=== PATIENT | female | born 1970 | race Caucasian/White ===

== ENCOUNTER → 2016-03-10 | Outpatient (CLI) | payer OTHER ==
[~2016-03-10] VITALS: Ht 180.3 cm; Wt 102.5 kg
[~2016-03-10] MED LIST: ADDERALL 20 MG20 MG PO; ADDERALL 30 MG30 MG PO; ADVAIR 250-501 EACH IH; ALLEGRA60 MG PO; CLONAZEPAM OR; DARVOCET-N 1001 EACH PO; FISH OIL 1,001000 M2 PO; GABAPENTIN 100100 MG PO; LAMICTAL XR200 MG PO; LIDODERM 5%1 PATC1 TRANSDERM; LOVASTAT20 OR; LUNESTA3 MG PO; NABUMETONE 750750 M1 PO; NEURONTIN 300300 M1 PO; PERCOCET 10-321 EACH OR; PROAIR HFA8.5 GM IH; PROTONIX40 M2 PO; SEROQUEL XR 30300 M1 PO; SINGULAIR 10 MG10 M1 PO; TRILEPTAL OR; ZOLOFT100 MG PO; ZOLPIDEM TARTRA10 MG PO
--- NOTE | ~2016-03-10 | HPC ---
[facility] [place] [address] PAIN MANAGEMENT CONSULTATION Name: AVIS STALLINGS Room #: REG [facility] Pérez#: [id number] Admission: 03/10/16 Attend Phys: Ron Linton DO Discharge: Date of : 70 Report #: [id number] THIS REPORT FOR: //name// CC: Ron Acosta The patient is a 45-year-old female seen in consultation at the request of Dr. Acosta, 10/01/2015, diagnosed with symptomatic cervical radiculopathy. We tried nonsteroidal anti-inflammatory medication (nabumetone) 750 b.i.d. and talked about cervical epidural injection. The patient returns to pain clinic today somewhat distressed about ongoing pain despite conservative therapies. She notes that the right neck, shoulder, arm remains problematic. She has had some chronic right hip issues due to subluxation. She does note, however, primary pain is in the right shoulder, neck and arm. PHYSICAL EXAMINATION: Shows a 45-year-old female, BMI is 31.5 kilograms per meter squared. Blood pressure is modestly elevated 152/90, pulse 105, respirations 16. Positive Lhermitte's sign with decreased right triceps strength compared to the left. A little decreased biceps strength as well on the right, objectively perhaps 3-4/5. All other muscles are 4/5. Biceps reflex is absent on the right, all others are 1/4. Grasp is symmetric. ASSESSMENT: Symptomatic cervical radiculopathy. RECOMMENDATION: Discussion with the patient today about therapeutic option. We have elected to proceed with epidural injection under fluoroscopy today, continue ibuprofen OTC which she found more efficacious than the nabumetone. Follow up in 3 weeks for reevaluation. PROCEDURE: Cervical epidural steroid injection under fluoroscopy. PROCEDURE NOTE: After written and informed consent was obtained including risk of dural puncture, spinal cord trauma, paralysis and increased pain, the patient was taken to the fluoroscopy suite and placed in the prone position, with appropriate abdominal bolstering, neck was flexed, palms under the thighs. Skin was prepped with ChloraPrep. Sterile draping was applied. Skin wheal with 1% Xylocaine was raised. A 22-gauge 3-1/2 inch epidural Tuohy needle was placed via a midline approach at the C7-T1 interspace, advanced under biplanar fluoroscopy using continuous loss of resistance. With appropriate loss of resistance at the expected depth on lateral view, the glass loss of resistance syringe was disconnected. A low volume extension tubing was connected to the needle and a 5 mL syringe. Negative aspiration for cerebrospinal fluid or blood was noted. A 1 mL of Omnipaque was injected which showed spread within the epidural space on biplanar fluoroscopy. This was followed with 80 mg of triamcinolone plus 1 mL of 1.5% preservative Xylocaine. Needle was withdrawn to the interspinous ligament, 0.5 mL of Xylocaine was used to flush the needle. [address] [address] PAIN MANAGEMENT CONSULTATION Name: HAYLIEAVISGREG ENGLAND Room #: REG CLBrice Ortez#: [id number] Admission: 03/10/16 Attend Phys: Ron Linton, Discharge: Date of : 70 Report #: [id number] The needle was then completely withdrawn. The area was cleansed. Band-Aid was applied. The patient was allowed to move off the procedure table and ambulated to the recovery room, monitored for an appropriate period of time, discharged in good and stable condition. <ELECTRONICALLY SIGNED> By: Ron Linton DO 03/13/16 1228 1613 0317 Ron Linton DO /nt
[2016-03-10 10:27] VITALS: BP 152/90
== END | disposition home or self-care (01) ==
LOC: PAIN 06:59
DX: M54.12 Radiculopathy, cervical region (principal)

== ENCOUNTER → 2016-05-05 | Outpatient (CLI) | payer OTHER ==
[~2016-05-05] VITALS: Ht 180.3 cm; Wt 100.3 kg
--- NOTE | ~2016-05-05 | HPC ---
[facility] [address] [place] [address] PAIN MANAGEMENT CONSULTATION Name: AVIS STALLINGSN Room #: REG Brice ButtAnastasia#: [id number] Admission: 05/05/16 Attend Phys: Ron Linton DO Discharge: Date of : 70 Report #: [id number] THIS REPORT FOR: //name// CC: [facility] physician/PCP Ron Linton The patient is a 45-year-old female, prior seen 03/10/2016, given a cervical epidural injection #1 at that time. She was actually seen in consultation at that time as well. She returns to pain clinic today noting good incremental relief following that injection, patient reports 90% relief for a month and a half, better able to sleep. Pain has recurred. She rates up to 6/10, worse in the right arm and shoulder. She describes a burning light sensation. PHYSICAL EXAMINATION: Shows 45-year-old female, BMI is 30.9 kilograms per meter squared. Vital signs are generally stable. Cervical range of motion is ____ limited. Positive Lhermitte's to the right. ASSESSMENT: Symptomatic cervical radiculopathy. RECOMMENDATIONS: 1. Repeat epidural injection under fluoroscopy today. 2. Continue nonsteroidal anti-inflammatory medications. 3. Follow up in 3-4 weeks for reevaluation. If symptoms continue problematic, may consider a referral to Neurosurgery though the MRI from 08/19/2015, was showing some compromise likely attributable to current issues. Does not show anything that looks obviously dramatically surgical. ASSESSMENT: Symptomatic cervical radiculopathy. PROCEDURE: Cervical epidural steroid injection under fluoroscopy. PROCEDURE NOTE: After written and informed consent was obtained including risk of dural puncture, spinal cord trauma, paralysis and increased pain, the patient was taken to the fluoroscopy suite and placed in the prone position, with appropriate abdominal bolstering, neck was flexed, palms under the thighs. Skin was prepped with ChloraPrep. Sterile draping was applied. Skin wheal with 1% Xylocaine was raised. A 22-gauge 3-1/2 inch epidural Tuohy needle was placed via a midline approach at the C7-T1 interspace, advanced under biplanar fluoroscopy using continuous loss of resistance. With appropriate loss of resistance at the expected depth on lateral view, the glass loss of resistance syringe was disconnected. A low volume extension tubing was connected to the needle and a 5 mL syringe. Negative aspiration for cerebrospinal fluid or blood was noted. A 1 mL of Omnipaque was injected which showed spread within the epidural space on biplanar fluoroscopy. This was followed with 80 mg of triamcinolone plus 1 mL of 1.5% preservative Xylocaine. Needle was withdrawn to the interspinous ligament, 0.5 mL of Xylocaine was used to flush the needle. The needle was then completely withdrawn. The area was cleansed. Band-Aid was [address] [address] PAIN MANAGEMENT CONSULTATION Name: AVIS STALLINGSN Room #: REG [facility] Ortez#: [id number] Admission: 05/05/16 Attend Phys: Ron Linton DO Discharge: Date of : 70 Report #: [id number] applied. The patient was allowed to move off the procedure table and ambulated to the recovery room, monitored for an appropriate period of time, discharged in good and stable condition. <ELECTRONICALLY SIGNED> By: Ron Linton DO 05/08/16 1130 1031 1121 Ron Linton DO /nt
[2016-05-05 12:39] VITALS: BP 142/85
== END | disposition home or self-care (01) ==
LOC: PAIN 03-31 13:39
DX: M54.12 Radiculopathy, cervical region (principal); Z87.891 Personal history of nicotine dependence

== ENCOUNTER → 2017-06-01 | Outpatient (CLI) | payer OTHER ==
[~2017-06-01] VITALS: Ht 180.3 cm; Wt 105.7 kg
[~2017-06-01] MED LIST changes: +ARIPIPRAZOLE5 MG PO; +CETIRIZINE HCL10 MG PO; +DOXEPIN 10 MG C10 M1 PO; +IBUPROFEN 400400 M1 PO; +MAGOX 400400 MG PO; +PROTONIX40 M1 PO; +VENTOLIN HFA 1818 GM INH
--- NOTE | ~2017-06-01 | HPC ---
[facility] [address] [address] [address] PAIN MANAGEMENT CONSULTATION Name: AVIS STALLINGS Room #: REG [facility] Pérez#: [id number] Admission: 06/01/17 Attend Phys: Ron Linton DO Discharge: Date of : 70 Report #: [id number] THIS REPORT FOR: //name// CC: [facility] physician/PCP Ron Linton DATE OF SERVICE: 06/01/2017 The patient is a very pleasant 46-year-old female seen a little greater than a year ago in 04/2016. She had 2 cervical epidural injections with excellent improvement of radicular pain. Was somewhat lost to follow up. Returns to pain clinic today noting pain has gradually begun to recur. She has taken over snf care of her niece, I believe 4-month-old baby. The patient has an 11-year-old, I believe a mid teenager and a 26-year-old child of her own. She notes with increased activity, she is having some increasing pain in neck, shoulder, right arm. They have an [place]. She does a lot of swimming in the summer and this seems to help with her symptoms, but during the fall and winter now, she has had decreased range of motion and exercise with increasing pain in the cervical distribution with pain radiating into the right shoulder and arm. PHYSICAL EXAMINATION: Shows 46-year-old female, BMI is 32.5 kilograms per meter squared. Cervical range of motion is limited. Grossly positive Lhermitte's with pain radiating in the right shoulder and arm. Has a slight decreased right hand strength (grasp) compared to the left, otherwise muscles are generally symmetric. Rises from chair using armrest, modestly antalgic gait, +1 pretibial edema in the right lower extremity. ASSESSMENT: Symptomatic cervical radiculopathy by clinical exam and history, prior very good relief with epidural injection. RECOMMENDATIONS: 1. Discontinue qcmw-vis-gubetrc anti-inflammatories. I have taken the liberty of writing for prescription nabumetone 750 b.i.d. 2. Cervical epidural injection under fluoroscopy today. 3. Follow up in 3 weeks for reevaluation. PROCEDURE: Cervical epidural injection under fluoroscopy. PROCEDURE NOTE: After written and informed consent was obtained including risk of dural puncture, spinal cord trauma, paralysis and increased pain, the patient was taken to the fluoroscopy suite and placed in the prone position, with appropriate abdominal bolstering, neck was flexed, palms under the thighs. Skin was prepped with ChloraPrep. Sterile draping was applied. Skin wheal with 1% Xylocaine was raised. A 22-gauge 3-1/2 inch epidural Tuohy needle was placed [address] [address] PAIN MANAGEMENT CONSULTATION Name: HAYLIEAVISGREG ENGLAND [id number] Admission: 06/01/17 Attend Phys: oRn Linton DO Discharge: Date of : 70 Report #: [id number] via a midline approach at the C7-T1 interspace, advanced under biplanar fluoroscopy using continuous loss of resistance. With appropriate loss of resistance at the expected depth on lateral view, the glass loss of resistance syringe was disconnected. A low volume extension tubing was connected to the needle and a 5 mL syringe. Negative aspiration for cerebrospinal fluid or blood was noted. A 1 mL of Omnipaque was injected which showed spread within the epidural space on biplanar fluoroscopy. This was followed with 80 mg of triamcinolone plus 1 mL of 1.5% preservative Xylocaine. Needle was withdrawn to the interspinous ligament, 0.5 mL of Xylocaine was used to flush the needle. The needle was then completely withdrawn. The area was cleansed. Band-Aid was applied. The patient was allowed to move off the procedure table and ambulated to the recovery room, monitored for an appropriate period of time, discharged in good and stable condition. Thank you for allowing me to participate in the patient's care. I will keep you abreast of her progress. <ELECTRONICALLY SIGNED> By: Ron Linton DO 06/02/17 0954 1233 Ron Linton DO /nt
[2017-06-01 10:20] VITALS: BP 146/106
== END | disposition home or self-care (01) ==
LOC: PAIN 07:07
DX: M54.12 Radiculopathy, cervical region (principal); G89.29 Other chronic pain; F17.200 Nicotine dependence, unspecified, uncomplicated; Z98.890 Other specified postprocedural states; Z88.8 Allergy status to other drugs, medicaments and biological substances; Z79.899 Other long term (current) drug therapy

== ENCOUNTER → 2017-06-25 | Outpatient (CLI) | payer OTHER ==
[~2017-06-25] VITALS: Ht 180.3 cm; Wt 104.6 kg
--- NOTE | ~2017-06-25 | HPC ---
[facility] [place] [address] [address] PAIN MANAGEMENT CONSULTATION Name: HAYLIEMIN ROBERTSSofy ENGLAND Room #: REG [facility] Pérez#: [id number] Admission: 06/25/17 Attend Phys: Ron Linton DO Discharge: Date of : 70 Report #: [id number] THIS REPORT FOR: //name// CC: [facility] physician/PCP Ron Linton The patient is a 46-year-old female. She was initially seen in consultation back in 09/2015 for cervical radicular symptoms, had two cervical epidural injections and did well. She returned to the pain clinic on 06/01/2017 noting a recurrence of radicular pain, neck, right shoulder and arm. She had been doing a lot of swimming in the summer. Symptoms had gotten better, but with the fall and winter, she had had decreased range of motion and had increased cervical radicular symptoms. I did an epidural injection at that time (06/01/2017). She returns to the pain clinic today noting that the cervical epidural injection did afford incremental relief; however, she has had some bizarre episodic issues of significant cramping and spasm. She states that she developed cramping in her right leg to the point that she feels she tore either some muscles or tendon. She actually presented to the ER on Sunday. The patient states that she was diagnosed with the aforementioned soft tissue "tear." She does have some swelling in the right lower extremity. She has had episodic cramping in the right arm as well, spasm in her hand to the point that she has to manipulate it with the contralateral hand. PHYSICAL EXAMINATION: GENERAL: Generally unchanged, a 46-year-old female. VITAL SIGNS: Stable. BMI is modestly elevated at 32.5 kilograms per meter squared. MUSCULOSKELETAL: Cervical range of motion is generally full though she does have exacerbation of some right radicular symptoms with extension. Rises from chair using armrest. Gait is tandem. She can walk on her toes and heels though does have slight decreased right hip flexion and extension strength. Patellar and Achilles reflexes are diminished, but generally symmetric, nominally positive straight leg raise on the right. Diffuse tenderness across the low back. We reviewed prior diagnostic studies including EMG from 08/06/2015, upper extremity noting chronic and subacute moderate right C5-C6 radiculopathy, C6-C7 radiculopathy and also a little C5-C6 radiculopathy on the left. MRI of the cervical spine from 08/2015 had noted C5-C6 and C6-C7 cervical spondylosis. Given symptoms and history, I suspect she probably has similar findings in the lumbar spine and the right leg spasm and pain in her foot and weakness may be secondary to [place] [address] PAIN MANAGEMENT CONSULTATION Name: AVIS STALLINGSN Room #: REG CLBrice Ortez#: [id number] Admission: 06/25/17 Attend Phys: Ron Linton DO Discharge: Date of : 70 Report #: [id number] Discussion with the patient today about therapeutic options, we have elected to continue nabumetone 750 b.i.d., increase gabapentin from 200 mg b.i.d. to 300 b.i.d. (I have taken the liberty of writing for the latter two prescriptions). We will get an MRI of the lumbar spine and follow up next week. May consider lumbar epidural injection if the right radicular symptoms continue unabated including episodic spasm in the right foot and leg. If, however, the MRI is unremarkable may consider referral to Neurology. We will again follow up in one week for reevaluation. We will review lumbar MRI findings and we will discuss repeating cervical versus lumbar epidural injection at that time. The patient is discharged in good and stable condition. <ELECTRONICALLY SIGNED> By: Ron Linton DO 06/28/17 0811 1305 2315 Ron Linton DO /nt
[2017-06-25 11:11] VITALS: BP 132/99
== END ==
LOC: PAIN 07:10
DX: M54.12 Radiculopathy, cervical region (principal)

== ENCOUNTER → 2017-07-04 | Outpatient (CLI) | payer OTHER | LOC: MRI 07:04 | DX: M47.26 Other spondylosis with radiculopathy, lumbar region (principal); M48.061 Spinal stenosis, lumbar region without neurogenic claudication ==

== ENCOUNTER → 2017-07-19 | Outpatient (CLI) | payer OTHER ==
[~2017-07-19] VITALS: Ht 180.3 cm; Wt 103.4 kg
[~2017-07-19] MED LIST changes: +CYMBALTA30 MG PO; +LYRICA 50 MG50 MG PO
--- NOTE | ~2017-07-19 | HPC ---
[facility] [place] [address] [address] PAIN MANAGEMENT CONSULTATION Name: AVIS STALLINGSN Room #: REG [facility] Pérez#: [id number] Admission: 07/19/17 Attend Phys: Ron Linton DO Discharge: Date of : 70 Report #: [id number] THIS REPORT FOR: //name// CC: [facility] physician/PCP Ron Linton DATE OF SERVICE: 07/19/2017 The patient is a pleasant 46-year-old female. She was prior seen 07/05/2017. She was given epidural injection at L5-S1. She was getting some relief with gabapentin, but having untoward sedation. I gave her samples of Lyrica 50 mg at bedtime, continued on nabumetone 750 b.i.d. She returns to pain clinic today noting that Lyrica seems to be helpful, but does still cause some sedation. Notes pain continues to be problematic, though she got 50% relief following the epidural injection. She has pain primarily in the right leg and hip. Notes some neck spasm ongoing. She has had a lot of spasm in the leg and neck even predating the radicular symptoms. Discussion with the patient today about therapeutic option. I believe a component of her pain may be more myofascial with the widespread muscle spasm. We talked about discontinuing Lyrica altogether due to sedation even at low dose. We will trial Cymbalta 30 mg 1 a day. Acute exacerbation of lumbar radicular pain with greater than 50% improvement following epidural injection. RECOMMENDATION: Repeat epidural injection under fluoroscopy today. Follow up in about 30 days to evaluate efficacy of medication changes and efficacy of interventional therapy. ASSESSMENT #1: Symptomatic lumbar radiculopathy. PROCEDURE: Lumbar epidural injection under fluoroscopy. PROCEDURE NOTE: After both written and informed consent to include risk of spinal cord damage, increased pain, weakness and dural puncture, the patient was taken to the fluoroscopy suite, placed in the prone position. After sterile prep and drape, a skin wheal with lidocaine was raised. A 22-gauge epidural Tuohy needle was inserted in the midline at L5-S1 with good loss to resistance. Negative aspiration for cerebrospinal fluid or blood was noted. Then 1 mL of Omnipaque under biplanar fluoroscopy showed good spread within the epidural space. This was followed with 80 mg of triamcinolone plus 1 mL of 1.5% preservative-free Xylocaine, 0.5 mL Xylocaine was then injected to flush the needle; it was removed. The patient was monitored for an appropriate period of time and discharged in good and stable condition. [address] [address] PAIN MANAGEMENT CONSULTATION Name: AVIS STALLINGS TOMÁS Room #: REG [facility] Pérez#: [id number] Admission: 07/19/17 Attend Phys: Ron Linton DO Discharge: Date of : 70 Report #: [id number] ASSESSMENT #2: Cervical radiculopathy, myofascial pain, muscle strain. RECOMMENDATION: Discontinue Lyrica. Start Cymbalta 30 mg 1 a day, continue nabumetone 750 b.i.d. <ELECTRONICALLY SIGNED> By: Ron Linton DO 07/20/17 0727 1241 1711 Ron Linton DO /nt
[2017-07-19 09:07] VITALS: BP 127/79
== END | disposition home or self-care (01) ==
LOC: PAIN 06:49
DX: M54.16 Radiculopathy, lumbar region (principal); M54.12 Radiculopathy, cervical region; M79.1 Myalgia; G89.29 Other chronic pain; F17.210 Nicotine dependence, cigarettes, uncomplicated; Z88.8 Allergy status to other drugs, medicaments and biological substances; Z98.890 Other specified postprocedural states; Z79.899 Other long term (current) drug therapy

== ENCOUNTER → 2018-09-24 | Outpatient (CLI) | payer OTHER ==
[~2018-09-24] VITALS: Ht 180.3 cm; Wt 111.1 kg
[~2018-09-24] MED LIST changes: +AMPHETAMINE SAL30 MG PO; +GLUCOPHAGE XR500 MG PO; +LIPITOR10 MG PO
[2018-09-24 09:07] VITALS: BP 129/91
--- NOTE | 2018-09-24 09:32 | NUR ---
Pain Clinic Assessment: 1. History of Osteoarthritis: NONE History of Rheumatoid Arthritis: NONE 2. Height: 5 ft. 11 in. 180.3 cm. Weight: 245.0 lb. oz. 111.132 kg. Patient's BMI: 34.2 3. Vital Signs: BP: 129/91 Pulse: 105 Resp: 14 Temp: 02 Sat: 97 ECG Mon: 4. Pain Intensity: 7 5. Fall Risk: Dizziness: N Needs help standing or walking: N Fallen in the last 3 months: N Fall risk comments: 6. Patient on Blood Thinner: None 7. History of Hypertension: Y 8. Opioid Therapy greater than 6 weeks: N Opiate Contract Signed: 9. Risk Assessment Tool Provided: MODERATE RISK 05/19 10. Functional Assessment Tool: 11. Recreational Drug Use: Never Drug Type: Tobacco Use: Current Every Day Smoker Tobacco Type: Cigarettes Amount or Packs/day: 1/2 How Many Years: 30 Alcohol Use: No Frequency: Quant:
--- NOTE | 2018-09-25 08:14 | HPC ---
[facility] [place] [place] [address] PAIN MANAGEMENT CONSULTATION Name: AVIS STALLINGS Room #: REG CL Pérez#: [id number] Admission: 09/24/18 Attend Phys: Gunnar Linton DO Discharge: Date of : 70 Report #: [id number] THIS REPORT FOR: //name// CC: JOSHUA Linton Physician staff Xochitl Karla SESAY DATE OF SERVICE: 09/24/2018 CHIEF COMPLAINT: Low back pain, lower extremity pain with paresthesias. HISTORY OF PRESENT ILLNESS: As you know, the patient is a very unfortunate 47-year-old female who returns today in followup visit to undergo next in the series of lumbar epidural injections under fluoroscopic guidance. The patient has had previous injections involving the cervical spine and the lumbar spine. Most recent lumbar epidural injection was provided on 08/13/2018 with about 50% improvement in overall pain. She returns today with new imaging of the lumbar spine, which only shows minor changes in the L1-L2, L2-L3, and L3-L4 level. There are some changes noted at the L4-L5 level with possible impingement on the right L5 nerve root, bilateral facet arthropathy at the L5-S1 level, typical for age-related findings. She returns to undergo an epidural injection to address lumbar radicular symptoms. She also has findings in her cervical spine, which show mainly typical degenerative changes at C5-C6, C6-C7 with mild bilateral neural foraminal stenosis noted at both levels, nonsurgical nor is it necessary to address with interventional treatments. She returns to have next in the series of lumbar epidural injections. ALLERGIES: CODEINE. CURRENT MEDICATIONS: Metformin, atorvastatin, amphetamine salts, duloxetine, nabumetone, cetirizine, aripiprazole, pantoprazole, albuterol, docusate sodium, omega-3 fish oil, zolpidem, montelukast sodium and fluticasone/salmeterol. SOCIAL HISTORY: The patient denies IV or illicit drug use. Denies any chronic alcohol use. She is a smoker, smoking half pack or greater of tobacco per day and has done so for 20 years. She is unaccompanied today. IMAGING: MRI of the lumbar spine obtained 09/13/2018 shows age-related findings at L1-L2, L2-L3, L3-L4. At L4-L5, there is a mildly prominent right central disk protrusion impinging upon the right exiting nerve root at L5, no significant neural foraminal stenosis. L5-S1 bilateral facet arthropathy with minimal degenerative anterolisthesis of L5 and S1 and due to facet arthropathy mild disk bulge, no central canal or neural foraminal stenosis. MRI of the cervical spine shows typical age-related findings. [place] [address] PAIN MANAGEMENT CONSULTATION Name: AVIS STALLINGSN Room #: REG CLBrice Ortez#: [id number] Admission: 09/24/18 Attend Phys: Gunnar Linton DO Discharge: Date of : 70 Report #: [id number] noted at the C5-C6 level with bilateral uncovertebral joint spurring and hypertrophy causing mild bilateral neural foraminal stenosis, typical finding at this level for a 47-year-old female. C6-C7 shows mild bilateral neural foraminal stenosis, no significant central canal stenosis. At C6-C7, there is bilateral facet arthrosis, mild degenerative changes, no central canal neural foraminal stenosis. PQRS: The patient has arthritic changes noted of the cervical and lumbar spine, typical age-related findings. No rheumatoid arthritis. She is placing pain intensity today at 7/10, not a fall risk, has not had a fall in the last 3 months. She is not on blood thinners. She is treated for hypertension. She is not on chronic opioids. She has a moderate risk of opioid addiction. Pain impact score 36/70, moderate interference of daily activities secondary to pain. PHYSICAL EXAMINATION: VITAL SIGNS: Blood pressure 129/91, pulse 105, respiratory rate 14 and unlabored. The patient is 97% on room air. Height 5 feet 11 inches tall, weight 245 pounds, BMI calculated 34.2. GENERAL: Well-developed, well-nourished, well-hydrated exogenously obese 47-year-old female appearing stated age, pain is rated today at 7/10. HEENT: Normocephalic, atraumatic. Pupils equal, round, reactive to light. EXTREMITIES: Show no clubbing, no cyanosis, and no edema. MUSCULOSKELETAL: Lower extremity strength is symmetrical again today 5/5. Muscle bulk and tone equal and symmetrical in comparing left lower extremity to right. Seated straight leg raising negative. Supine straight leg raising remains negative. Shelly's test negative. Modified Gaenslen's positive for axial low back pain. Ankle clonus negative. ASSESSMENT: 1. Chronic lumbar radiculopathy. 2. Mild displacement of lumbar intervertebral disk with radiculopathy. 3. Lumbosacral spondylosis with radiculopathy. 4. Mild neural foraminal stenosis of the lumbar spine. 5. Mild lumbar degeneration. 6. Chronic intractable pain. PLAN: 1. The patient returns today in followup visit where we have taken an extended period of time to review MRI imaging of her cervical spine, which shows age-related findings. No lateralizing feature. There is no central canal stenosis and only mild bilateral neural foraminal stenosis. No interventions are necessary to address neck issues. We would recommend the patient follow up with PCP to initiate anti-inflammatory therapies or possible low dose neuropathic pain medications. 2. In regard to the patient's low back symptoms, she continues to experience pain radiating on the right side more than the left. We recommend next in the [facility] [address] [place] [address] PAIN MANAGEMENT CONSULTATION Name: AVIS STALLINGSN [facility]: [facility] [id number] Admission: 09/24/18 Attend Phys: Gunnar Linton DO Discharge: Date of : 70 Report #: [id number] series of lumbar epidural injections. The patient reports about 50% improvement in overall pain with previous epidural injection, recommend undergoing the next in the series today. She has been advised risks and benefits of the procedure, states understood and wished to proceed. 3. No medication changes are necessary at today's visit. Recommend continued current medical therapy. 4. We will see the patient back in followup visit on an as needed basis for the third in the series of lumbar epidural injections to address mild lumbar radicular symptoms. PROCEDURE NOTE: DESCRIPTION OF PROCEDURE: L5-S1 right paramedian epidural steroid injection under fluoroscopic guidance. After obtaining written consent, the patient was taken back to fluoroscopy suite, placed in prone position with pillow under abdomen to decrease lumbar lordosis. Skin overlying lumbosacral area then prepped and draped in aseptic fashion. The L5-S1 vertebral interspace identified by AP fluoroscopy. Skin and subcutaneous tissue overlying target site of injection anesthetized with 3 mL of 1% lidocaine. A 20-gauge 3-1/2 inch Tuohy needle advanced under fluoroscopic guidance towards the epidural space using a right paramedian approach. Epidural space identified using loss of resistance to air technique. After negative aspiration for heme or cerebrospinal fluid, 1 mL of Omnipaque injected. Lumbar epidurogram confirmed using both AP and lateral fluoroscopy. After negative aspiration for heme or cerebrospinal fluid, 5 mL of a solution containing 2 mL 40 mg per mL, 80 mg total triamcinolone along with 3 mL of lidocaine 1% was injected slowly. Needle then retracted approximately half way, flushed with 1 mL of 1% lidocaine and then removed. Sterile bandage placed over injection site. No new motor deficits present in the lower extremity following procedure. The patient tolerated the procedure well, carefully escorted to recovery room in stable condition. No apparent complications. After meeting discharge criteria, the patient discharged home. <ELECTRONICALLY SIGNED> By: Gunnar Linton DO 09/25/18 0814 [id number] [id number] Gunnar Linton DO /nt
== END | disposition home or self-care (01) ==
LOC: PAIN 06:43
DX: M51.16 Intervertebral disc disorders with radiculopathy, lumbar region (principal); M51.26 Other intervertebral disc displacement, lumbar region; G89.29 Other chronic pain; M47.27 Other spondylosis with radiculopathy, lumbosacral region; M48.061 Spinal stenosis, lumbar region without neurogenic claudication; F17.210 Nicotine dependence, cigarettes, uncomplicated; Z88.6 Allergy status to analgesic agent; Z79.899 Other long term (current) drug therapy; Z98.890 Other specified postprocedural states

== ENCOUNTER → 2019-10-07 | Outpatient (CLI) | payer OTHER ==
[~2019-10-07] VITALS: Ht 180.3 cm; Wt 118.0 kg
[~2019-10-07] MED LIST changes: +LOPRESSOR50 MG PO
--- NOTE | ~2019-10-07 | HPC ---
[facility] [place] [address] PAIN MANAGEMENT CONSULTATION Name: AVIS STALLINGS Room #: REG [facility] [id number] Admission: 10/07/19 Attend Phys: Gunnar Linton DO Discharge: Date of : 70 Report #: [id number] THIS REPORT FOR: cc: JOSHUA COTTON Physician not on staff Gunnar Linton DO ~ CC: JOSHUA Linton Physician staff DATE OF SERVICE: 10/07/2019 CHIEF COMPLAINT: Low back pain, lower extremity pain and paresthesias. HISTORY OF PRESENT ILLNESS: As you know, the patient is a very unfortunate 48-year-old female returning in followup visit to undergo lumbar epidural injection under fluoroscopic guidance. She has had recurrence of lumbar radicular symptoms for which she places pain score at 7/10. She states previous epidural injection gave improvement in pain of approximately 60%, lasting for months. She has been fearful of COVID-19 and has not returned to our clinic for further treatment. She returns today requesting a lumbar epidural injection under fluoroscopic guidance. She denies injury or trauma. ALLERGIES: CODEINE. CURRENT MEDICATIONS: Metoprolol 50 mg twice a day, metformin 500 mg once a day, atorvastatin 10 mg once a day, duloxetine 30 mg once a day, nabumetone 750 mg twice a day, cetirizine 10 mg once a day, aripiprazole 5 mg once a day, pantoprazole 40 mg once a day, albuterol 2 puffs q. 4 hours p.r.n., omega-3 fish oil 1 tab per day, zolpidem 10 mg p.o. at bedtime, montelukast sodium 10 mg once a day, fluticasone/salmeterol 250/50 one puff b.i.d. IMAGING: No new imaging available. SOCIAL HISTORY: She denies IV or illicit drug use. Denies any chronic alcohol use. She continues to smoke, reports about a half pack tobacco per day. She has done so for greater than 22 years, unaccompanied today. PHYSICAL EXAMINATION: VITAL SIGNS: Blood pressure 132/99, pulse is 109, respiratory rate 14 and unlabored. The patient is 97% on room air. Height 5 feet 11 inches tall, weight 260.2 pounds, BMI calculated 36.3. GENERAL: Well-developed, well-nourished, well-hydrated exogenously obese 48-year-old female appearing stated age, pain is rated today 7/10. HEENT: Normocephalic, atraumatic. [address] [address] PAIN MANAGEMENT CONSULTATION Name: AVIS STALLINGS [facility] [id number] Admission: 10/07/19 Attend Phys: Gunnar Linton DO Discharge: Date of : 70 Report #: [id number] EXTREMITIES: Show no clubbing, no cyanosis, and no edema. MUSCULOSKELETAL: Lower extremity strength is symmetrical 5/5, intact to light touch from L1 through S2 dermatomes. Seated straight leg raising negative. Supine straight leg raising negative. Shelly's test is negative. Modified Gaenslen's positive for axial low back pain. Ankle clonus negative. ASSESSMENT: 1. Symptomatic lumbar radiculopathy. 2. Mild displacement of lumbar intervertebral disk with radicular symptoms. 3. Lumbosacral spondylosis with radiculopathy. 4. Mild neural foraminal stenosis of lumbar spine. 5. Mild lumbar degeneration. 6. Intractable chronic pain. PLAN: 1. The patient has returned today in followup visit requesting to undergo lumbar epidural injection under fluoroscopic guidance. She reports 60% improvement in overall pain with previous epidural injection lasting for months. Unfortunately, her symptoms have begun to return. She returns today in followup visit requesting next in the series. The patient has been advised risks and benefits of this procedure. These risks include but are not necessarily limited to bleeding, bruising, infection, worsening pain, no relief of pain, also risk of temporary or permanent muscle weakness, temporary or permanent nerve damage, possible paralysis and . The patient states understood and wished to proceed. 2. No medication changes made at today's visit. The patient to continue current medical therapy as prior prescribed. 3. We will see the patient back in followup visit on an as needed basis for possible next in the series of lumbar epidural injections. PROCEDURE NOTE DESCRIPTION OF PROCEDURE: Lumbar epidural steroid injection under fluoroscopic guidance. After obtaining written consent, the patient was taken back to fluoroscopy suite, placed in prone position with pillow under abdomen to decrease the lumbar lordosis. Skin overlying lumbosacral area then prepped and draped in aseptic fashion. Lumbar intervertebral spaces identified by AP fluoroscopy. Skin and subcutaneous tissue overlying target site injection anesthetized with 3 mL of 1% lidocaine. A 20-gauge 4-1/2 inch Tuohy needle advanced under fluoroscopic guidance towards the epidural space using a paramedian approach. Epidural space identified using loss of resistance to air technique. After negative aspiration for heme or cerebrospinal fluid, 1 mL of Omnipaque injected. Lumbar epidurogram confirmed [address] [address] PAIN MANAGEMENT CONSULTATION Name: AVIS STALLINGS Room #: REG [facility]#: [id number] Admission: 10/07/19 Attend Phys: Gunnar Linton DO Discharge: Date of : 70 Report #: [id number] using both AP and lateral fluoroscopy. After negative aspiration for heme or cerebrospinal fluid, 5 mL of a solution containing 2 mL 40 mg per mL, 80 mg total triamcinolone along with 3 mL of lidocaine 1% injected slowly. Needle retracted care home, flushed with 1 mL of 1% lidocaine now removed. Sterile bandage placed over injection site. No new motor deficits present in the lower extremities following procedure. The patient tolerated procedure well, carefully escorted to recovery room in stable condition. No apparent complications. After meeting discharge criteria, the patient discharged home. By: 1130 1516 Gunnar Linton DO /nt
[2019-10-07 14:28] VITALS: BP 132/99
--- NOTE | 2019-10-07 14:41 | NUR ---
Pain Clinic Assessment: 1. History of Osteoarthritis: NONE History of Rheumatoid Arthritis: NONE 2. Height: 5 ft. 11 in. 180.3 cm. Weight: 260.2 lb. oz. 118.026 kg. Patient's BMI: 36.3 3. Vital Signs: BP: 132/99 Pulse: 109 Resp: 14 Temp: 02 Sat: 97 ECG Mon: 4. Pain Intensity: 7 5. Fall Risk: Dizziness: N Needs help standing or walking: N Fallen in the last 3 months: N Fall risk comments: 6. Patient on Blood Thinner: None 7. History of Hypertension: Y 8. Opioid Therapy greater than 6 weeks: N Opiate Contract Signed: 9. Risk Assessment Tool Provided: MODERATE RISK 05/19 10. Functional Assessment Tool: 11. Recreational Drug Use: Never Drug Type: Tobacco Use: Current Every Day Smoker Tobacco Type: Cigarettes Amount or Packs/day: 1/2 PACK How Many Years: Alcohol Use: No Frequency: Quant:
== END | disposition home or self-care (01) ==
LOC: PAIN 06:47
PROVIDERS: ATTEND Anesthesiology Pain Medicine
DX: M51.16 Intervertebral disc disorders with radiculopathy, lumbar region (principal); M47.27 Other spondylosis with radiculopathy, lumbosacral region; M48.061 Spinal stenosis, lumbar region without neurogenic claudication; G89.29 Other chronic pain; F17.210 Nicotine dependence, cigarettes, uncomplicated; Z98.890 Other specified postprocedural states; Z79.899 Other long term (current) drug therapy; Z88.8 Allergy status to other drugs, medicaments and biological substances